=== PATIENT | female | born 1945 | race Caucasian/White ===

== ENCOUNTER → 2017-06-21 | Outpatient (CLI) | payer OTHER ==
[~2017-06-21] MED LIST: Aspirin EC81 MG; CALCA500CH PO; CVS GLUCOSAMIN PO; TRIA80TC TOP
== END | disposition home or self-care (01) ==
LOC: PLD 08:57 → LAB SHORT 08:57
DX: D48.5 Neoplasm of uncertain behavior of skin (principal)
CPT/HCPCS: 88305

== ENCOUNTER 2017-08-14 07:30 | Day surgery (SDC) | payer OTHER ==
[~2017-08-14] VITALS: Ht 170.2 cm; Wt 70.0 kg
== END 2017-08-14 09:31 | disposition home or self-care (01) ==
LOC: ORSCSDS 07:30
PROVIDERS: Internal Medicine Gastroenterology
PROC: 0DBL8ZX Excision of Transverse Colon, Via Natural or Artificial Opening Endoscopic, Diagnostic (ICD-10-PCS; principal; 2017-08-14 09:00)
PROC: 0DBH8ZX Excision of Cecum, Via Natural or Artificial Opening Endoscopic, Diagnostic (ICD-10-PCS; principal; 2017-08-14 09:00)
DX: Z12.11 Encounter for screening for malignant neoplasm of colon (principal); D12.0 Benign neoplasm of cecum; D12.3 Benign neoplasm of transverse colon; K64.8 Other hemorrhoids; K57.30 Diverticulosis of large intestine without perforation or abscess without bleeding; Z86.010 Personal history of colon polyps; E78.5 Hyperlipidemia, unspecified; Z79.82 Long term (current) use of aspirin; Z79.899 Other long term (current) drug therapy
CPT/HCPCS: 88305; J7120

== ENCOUNTER → 2022-10-04 | Outpatient (CLI) | payer OTHER ==
[2022-10-04 12:58] LABS: BASOPHILS ABSOLUTE AUTO 0.02 K/mm3 (0.00-0.23); BASOPHILS PERCENT AUTO 0 % (0-2); EOSINOPHILS ABSOLUTE AUTO 0.12 K/mm3 (0.00-0.68); EOSINOPHILS PERCENT AUTO 3 % (0-6); Hematocrit 41.4 % (33.0-51.0); Hemoglobin 13.6 g/dL (11.5-16.0); IMMATURE GRAN ABSOLUTE AUTO 0.01 K/mm3 (0.00-0.10); IMMATURE GRAN PERCENT AUTO 0 % (0-1); LYMPHOCYTES ABSOLUTE AUTO 1.55 K/mm3 (0.84-5.20); LYMPHOCYTES PERCENT AUTO 35 % (21-46); MONOCYTES ABSOLUTE AUTO 0.53 K/mm3 (0.16-1.47); MONOCYTES PERCENT AUTO 12 % (4-13); Mean Corpuscular HGB 30.4 pg (26.0-34.0); Mean Corpuscular HGB Conc 32.9 g/dL (31.5-36.5); Mean Corpuscular Volume 93 fL (80-100); Mean Platelet Volume 10.8 fL (9.1-12.4); NEUTROPHILS ABSOLUTE AUTO 2.26 K/mm3 (1.96-9.15); NEUTROPHILS PERCENT AUTO 50 % (41-73); Platelet Count 269 K/mm3 (150-400); RDW Coefficient Variation 12.7 % (11.7-14.2); RDW Standard Deviation 43.2 fL (35.1-46.3); Red Blood Cell Count 4.47 M/mm3 (3.80-5.20); White Blood Cell Count 4.49 K/mm3 (4.00-11.30)
[2022-10-04 13:53] LABS: Alanine Aminotransfer (ALT/SGP 27 U/L (12-78); Albumin, Blood 3.7 g/dL (3.4-5.0); Albumin/Globulin Ratio 0.9 (0.8-1.8); Alk Phos 109 U/L (50-136); Anion Gap 4 mmol/L (6-16); Aspartate Aminotrans (AST/SGOT 19 U/L (12-37); Bilirubin, Total 0.5 mg/dL (0.1-1.0); Blood Urea Nitrogen 12 mg/dL (8-24); Bun/Creatinine Ratio 14.9 (12.0-20.0); CHOL/HDL RATIO 4.4; CO2, Blood 29 mmol/L (21-32); Calcium, Blood 9.1 mg/dL (8.5-10.1); Chloride, Blood 108 mmol/L (98-108); Cholesterol 273 mg/dL (50-200); Creatinine, Blood 0.81 mg/dL (0.40-1.00); Globulin, Blood 4.1 g/dL (2.2-4.0); Glomerular Filtration Rate 76 (60-); Glucose, Blood 105 mg/dL (70-99); HDL Cholesterol 62 mg/dL (>39); LDL/HDL RATIO 2.8; Low Density Lipoprotein Chol 174 mg/dL (0-110); Potassium, Blood 3.9 mmol/L (3.5-5.5); Sodium, Blood 141 mmol/L (136-145); Total Protein, Blood 7.8 g/dL (6.4-8.2); Triglycerides 184 mg/dL (30-160); Very Low Density Lipoprot Chol 36 mg/dL (6-32)
== END ==
LOC: LAB 12:44 → LAB SHORT 12:44
PROVIDERS: Family Medicine
DX: E78.00 Pure hypercholesterolemia, unspecified (principal)
CPT/HCPCS: 80053; 80061; 85025

== ENCOUNTER → 2022-11-09 | Outpatient (CLI) | payer OTHER | LOC: LAB SHORT 11:58 → PLD 11:58 → LAB 11:58 | DX: C44.519 Basal cell carcinoma of skin of other part of trunk (principal); D22.39 Melanocytic nevi of other parts of face | CPT/HCPCS: 88305 ==

== ENCOUNTER → 2022-12-06 | Outpatient (CLI) | payer OTHER | END | disposition home or self-care (01) | LOC: LAB SHORT 10:00 → LAB 10:00 | DX: Z11.59 Encounter for screening for other viral diseases (principal); G62.9 Polyneuropathy, unspecified; Z79.899 Other long term (current) drug therapy | CPT/HCPCS: 84443; 86803 ==

== ENCOUNTER → 2022-12-13 | Outpatient (CLI) | payer OTHER | END | disposition home or self-care (01) | LOC: PLD 08:35 → LAB 08:35 → LAB SHORT 08:35 | DX: C44.519 Basal cell carcinoma of skin of other part of trunk (principal) | CPT/HCPCS: 88305 ==

== ENCOUNTER 2023-04-24 08:33 | Day surgery (SDC) | payer OTHER ==
[~2023-04-24] VITALS: Ht 167.6 cm; Wt 78.4 kg
[~2023-04-24 08:33] MED LIST changes: +DULO30 PO; +LOSA25 PO
[2023-04-24] MEDS ORDERED: GLUC500 (08:55)
[2023-04-24] MEDS ORDERED: CHONDROITIN SU100 G1 (08:56)
[2023-04-24] MEDS ORDERED: CALCIUM CIT 311 EAC7 (08:56)
[2023-04-24] MEDS ORDERED: CLOBETASOL EMOL15 G1 (08:57)
[2023-04-24] MEDS ORDERED: METAMUCIL POWD798 GM (08:57)
[2023-04-24] MEDS ORDERED: AZELASTINE137 MCG/06 (08:58)
[2023-04-24 10:36] VITALS: BP 130/76
--- NOTE | 2023-04-24 10:38 | NUR ---
04/24/23 1038 Meli Syed IV DC'D, CATH INTACT. PT TOLERATED WELL. GAUZE/COBAN IN PLACE
== END 2023-04-24 10:38 | disposition home or self-care (01) ==
LOC: ORSCSDS 08:33
PROVIDERS: Specialist
PROC: 0DBL8ZX Excision of Transverse Colon, Via Natural or Artificial Opening Endoscopic, Diagnostic (ICD-10-PCS; principal; 2023-04-24 10:00)
DX: Z12.11 Encounter for screening for malignant neoplasm of colon (principal); D12.3 Benign neoplasm of transverse colon; K64.8 Other hemorrhoids; K57.30 Diverticulosis of large intestine without perforation or abscess without bleeding; Z86.010 Personal history of colon polyps; E78.5 Hyperlipidemia, unspecified; I10 Essential (primary) hypertension; J45.909 Unspecified asthma, uncomplicated; Z79.899 Other long term (current) drug therapy
CPT/HCPCS: 88305; J2704; J7120